=== PATIENT | male | born 1960 | race Caucasian/White ===

== ENCOUNTER 2018-12-23 09:55 | Day surgery (SDC) | payer OTHER ==
[2018-12-23] MEDS ORDERED: CEFAZOLIN 2 GM/50 ML (PMX) 50 ML IVPB (10:00)
[2018-12-23] MEDS ORDERED: OXYCODONE/ACETAMINOPHEN (5/325) TAB PO ×2 (12:00)
[2018-12-23] MEDS ORDERED: HYDROmorphONE 1 MG/5 ML IV SYRINGE IV ×3 (12:00)
[2018-12-23] MEDS ORDERED: LABETALOL HCL 20MG INJ IV (12:00)
[2018-12-23] MEDS ORDERED: FENTAnyl 50 MCG/ML VIAL IV ×3 (12:00)
[2018-12-23] MEDS ORDERED: hydrALAzine 20 MG INJ IV (12:00)
[2018-12-23] MEDS ORDERED: MEPERIDINE 25 MG INJ IV (12:00)
[2018-12-23] MEDS ORDERED: ONDANSETRON 4 MG INJ IV (12:00)
[2018-12-23] MEDS ORDERED: KETOROLAC 30 MG INJ IV (12:00)
[2018-12-23] MEDS ORDERED: DIPHENHYDRAMINE 50 MG INJ IV (12:00)
[2018-12-23] MEDS ORDERED: CEFAZOLIN 1 GM INJ (12:13)
[2018-12-23] MEDS ORDERED: LIDOCAINE 2% (SDV) 5 ML INJ (12:13)
[2018-12-23] MEDS ORDERED: PROPOFOL 20 ML (12:13)
[2018-12-23] MEDS ORDERED: ONDANSETRON 4 MG INJ (12:41)
[2018-12-23] MEDS ORDERED: FENTAnyl 50 MCG/ML VIAL (12:41)
[2018-12-23] MEDS ORDERED: METOCLOPRAMIDE 10 MG INJ (12:41)
[2018-12-23] MEDS ORDERED: KETOROLAC 30 MG INJ (12:42)
[2018-12-23] MEDS ORDERED: HYDROCODONE/APAP (5/325) TAB PO (14:00)
[2018-12-23] MEDS: BACITRACIN/POLYMYXIN 28.35 GM OINT TOP (14:07)
[2018-12-23] MEDS: BUPIVACAINE 0.5% (SDV) 30 ML INJ (14:08)
== END 2018-12-23 16:50 | disposition home or self-care (01) ==
LOC: SDS 09:55
DX: N43.3 Hydrocele, unspecified (principal)
CPT/HCPCS: 55040; 88302